=== PATIENT | female | born 1995 | race Hispanic/Latino ===

== ENCOUNTER 2017-05-01 09:56 | Outpatient (CLI) | payer OTHER ==
--- NOTE | 2017-05-01 13:03 | ULT ---
COMPLETE ABDOMEN ULTRASOUND: INDICATION: Size and dates. FINDINGS: There is a single live intrauterine gestation in cephalic presentation. The placenta is fundal and p osterior in location without evidence of previa. Cardiac activity is noted at 141 b.p.m. MELISA is not ed at 12.4 cm. The head, heart, stomach, kidneys, cord insertion, bladder, spine, and 3-vessel cord appear wit hin normal limits. The estimated weight is 1218 gm +/- 180 gm (2 pounds 11 ounces+/- 6 ounces). This is the 22nd percentile based on [place]. The estimated gestational age by ultrasound is 28 weeks and 5 days with estimated due date of 07/19/17. This does correspond to the clinical age of 28 weeks 6 days with estimated due date of 07/18/17. IMPRESSION: 1. Single live intrauterine gestation. 2. Size and dates as above. 3. survey appears within normal limits. POS: [facility]
== END 2017-05-01 09:57 | disposition home or self-care (01) ==
LOC: ULT 09:56
PROVIDERS: ATTEND Nurse Practitioner
DX: Z34.02 Encounter for supervision of normal first pregnancy, second trimester (principal)
CPT/HCPCS: 76805

== ENCOUNTER 2017-07-18 22:17 | Day surgery (SDC) | payer OTHER ==
[2017-07-18 23:06] VITALS: BMI 25.4
--- NOTE | 2017-07-18 23:35 | PDOC.EVN ---
Event Note - Event Note Event Note: Patient in L&D triage TRIAGE H&P: Patient of Dr laina TRAMMELL 40 weeks Patient here for pelvic pressure. HPI: 21 yo g1 at 40 weeks with pelvic pressure and some nausea. No contractions , no LOF no headache, no visual changes. Review of systems: complete ROS done and as per HPI Allergies: amox Past OB: G1 Surgical HX: noncontributory Physical: 106/67 73 98.7 NAD Vo VB Abd soft NT Cervic closed Strip Cat 1 irregular contractions on toco Assessment/Plan: threatened labor at term Plan: 1. CMP 2. Monitors for now 3. No evidence true labor at this time
[2017-07-19 00:15] LABS: ALT (SGPT) Less than 7 U/L (8-55); AST (SGOT) 13 U/L (5-34); Albumin 3.5 g/dL (3.5-5.0); Alkaline Phosphatase 206 U/L (40-150); Anion Gap 14 mmol/L (10-20); BUN (Urea Nitrogen) 10 mg/dL (7.0-18.7); Bilirubin, Total 0.5 mg/dL (0.2-1.2); Calc. Creatinine Clearance 155 mL/min (70-130); Calcium 9.5 mg/dL (7.8-10.44); Carbon Dioxide 22 mmol/L (22-29); Chloride 104 mmol/L (98-107); Estimated GFR-MDRD Greater than 90; Globulin 3.8 g/dL (2.4-3.5); Glucose 89 mg/dL (70-105); Potassium 3.7 mmol/L (3.5-5.1); Protein, Total 7.3 g/dL (6.0-8.3); Sodium 136 mmol/L (136-145)
--- NOTE | 2017-07-19 00:22 | PDOC.EVN ---
Event Note - Event Note Event Note: Patient seen again at [facility]. Discussed latent labor. CMP ok. BPs wnl. OK for outpatient follow up with L&D info.
== END 2017-07-19 01:01 | disposition home or self-care (01) ==
LOC: L&D/OP 22:17
PROVIDERS: ATTEND Family Medicine
DX: O47.1 False labor at or after 37 completed weeks of gestation (principal); Z88.1 Allergy status to other antibiotic agents; Z3A.40 40 weeks gestation of pregnancy
CPT/HCPCS: 36415; 80053

== ENCOUNTER 2019-08-14 16:04 | Emergency (ER) | payer OTHER, SELFPAY ==
[2019-08-14] MEDS ORDERED: Ketorolac Tromethamine 30 MG/ML VIAL ONE (17:19)
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
== END 2019-08-14 17:57 | disposition home or self-care (01) ==
LOC: ERS 16:04
DX: S16.1XXA Strain of muscle, fascia and tendon at neck level, initial encounter (principal); R07.89 Other chest pain; V43.52XA Car driver injured in collision with other type car in traffic accident, initial encounter
CPT/HCPCS: 71045; 72125; 96372; J1885; L0120

== ENCOUNTER 2022-06-04 17:11 | Emergency (ER) | payer OTHER, SELFPAY ==
[2022-06-04] MEDS ORDERED: Ketorolac Tromethamine 30 MG/ML VIAL ONE (18:40)
== END 2022-06-04 18:48 | disposition home or self-care (01) ==
LOC: ERS 17:11
DX: S13.4XXA Sprain of ligaments of cervical spine, initial encounter (principal); V89.2XXA Person injured in unspecified motor-vehicle accident, traffic, initial encounter; Y92.410 Unspecified street and highway as the place of occurrence of the external cause
CPT/HCPCS: 96372; 99283; J1885

== ENCOUNTER 2024-04-12 13:50 | Emergency (ER) | payer OTHER, SELFPAY ==
[2024-04-12] MEDS ORDERED: Ketorolac Tromethamine 30 MG (1 mL) VIAL ONE (15:46)
[2024-04-12] MEDS ORDERED: Ondansetron ODT 4 MG TAB ONE (15:47)
== END 2024-04-12 16:05 | disposition home or self-care (01) ==
LOC: ERS 13:50
DX: J10.1 Influenza due to other identified influenza virus with other respiratory manifestations (principal)
CPT/HCPCS: 71046; 87428; 96372; J1885; Q0162